=== PATIENT | male | born 1965 | race Caucasian/White ===

== ENCOUNTER 2019-09-02 06:25 | Day surgery (SDC) | payer BC ==
[~2019-09-02 06:25] MED LIST: Buffered Lidocaine 1% SYRIN* 1 ML/SYRINGE INTRADERM ONE; Dexamethasone IV* 4 MG/ML 1 ML (4 MG) IV SLOW PU ONE; Dexamethasone IV* 4 MG/ML 1 ML (4 MG) ONE; Famotidine IV* 10 MG/ML 2 ML (20 mg) IV ONE; Famotidine IV* 10 MG/ML 2 ML (20 mg) ONE; Lactated Ringers 1000 ML Bag* 1,000 ML IV SCH
[2019-09-02] MEDS ORDERED: ceFAZolin 2 GM PREMIX in ORs 2 GM/50 ML BAG ONE (06:30)
[2019-09-02] MEDS ORDERED: Bupivacaine 0.5% SDV PF* 30ML VIAL ONE (07:08)
[2019-09-02] MEDS ORDERED: Lidocaine 1% INJ* 10 MG/ML 30 ML SDV ONE (07:13)
[2019-09-02] MEDS ORDERED: fentaNYL* 50 MCG/ML 2 ML VIAL (100 MCG VIAL) ONE (07:16)
[2019-09-02] MEDS ORDERED: Ondansetron INJ* 2 MG/ML VIAL ONE (07:17)
[2019-09-02] MEDS ORDERED: Propofol* 10 MG/ML 20 ML BTL ONE (07:17)
[2019-09-02] MEDS ORDERED: Ketorolac INJ* 30 MG/ML 1 ML VIAL ONE (07:17)
[2019-09-02] MEDS ORDERED: Midazolam* 1 MG/ML 5 ML VIAL (5 MG) ONE (07:17)
[2019-09-02] MEDS ORDERED: oxyCODONE/Acetamin 5/325 MG* TAB PO PRN (07:50)
[2019-09-02] MEDS ORDERED: Ondansetron INJ* 2 MG/ML VIAL IV PRN (07:50)
[2019-09-02] MEDS ORDERED: Naloxone* 0.4 MG/ML 1 ML VIAL IV PRN (07:50)
[2019-09-02] MEDS ORDERED: DiMENhydriNATE IV* 50 MG/ML VIAL IV PUSH PRN (07:50)
--- NOTE | 2019-09-02 07:58 | OP ---
Operative Report - Blank - Operative Report Date of Operation: 09/02/19 Note: PATIENT: Aidan Sparks DATE OF : 1965 DATE OF SURGERY: 09/02/2019 SURGEON: Javier Yeager MD SURFACE GRINDER TENDER: MESSI Montanez, whos assistance was necessary for positioning, retraction, help with instrumentation, and closure. ANESTHESIOLOGIST: Dr. Cagle PREOPERATIVE DIAGNOSIS: Right foot ganglion cyst POSTOPERATIVE DIAGNOSIS: Right foot ganglion cyst OPERATION: Right foot ganglion cyst excision ANESTHESIA: MAC with local anesthesia provided by surgeon IMPLANTS: none TOURNIQUET TIME: Less than 30 minutes with an ankle Esmarch tourniquet SPECIMENS: ganglion cyst to pathology ESTIMATED BLOOD LOSS: minimal COMPLICATIONS: none STATUS: Stable from the operating room to the recovery room and then home. INDICATIONS FOR PROCEDURE: Jesus has had a painful, recurrent right dorsolateral foot ganglion that has been aspirated a couple of times by a gunite mixer but recurred. Both operative and non operative treatment alternatives were reviewed. Further, the nature and risks of surgery were reviewed in careful detail, in the office as well as the pre-operative holding area. Our discussions regarding the risks of surgery included, but were not limited to, infection, wound problems, nerve injury, neuroma, RSD, persistent symptoms, cyst recurrence, blood clot, recurrence, failure of the surgery, and even the remote chance of catastrophic complication. DESCRIPTION OF PROCEDURE: The patient was seen in the preoperative holding unit and informed written consent was obtained. The appropriate extremity was marked. The patient was then brought to the operating room and carefully positioned on the operating room table. Anesthesia was induced. All bony prominences were padded with great care. A chlorhexidine based pre-scrub was performed followed by a chloraprep prep and drape in standard sterile fashion. A surgical safety pause was then conducted in which we confirmed the appropriate patient, extremity, planned procedure, availability of equipment, indication and administration of prophylactic antibiotics, and DVT prophylaxis in the form of a compression boot on the non-surgical extremity. We began with Esmarch exsanguination of the limb and placement of an ankle Esmarch tourniquet. An incision was made over the cyst and then careful blunt dissection was made to get down to the deep layer overlying the cyst. Blunt dissection was then utilized to define the cyst. The cyst was then amputated at its stalk excised. Cautery was used to ablate the cysts stalk. No bony prominences were palpated at the joint which would be amenable to saucerization. At this point, we irrigated copiously and then closed in layers meticulously utilizing 3-0 Monocryl and 3-0 nylon for the skin. A sterile dressing was then applied. The patient was then awakened from anesthesia and transferred to the recovery room in stable condition. There were no complications. All needle and sponge counts were correct at the end of the case. ATTESTATION: I attest I was present and scrubbed and performed the critical portions of the procedure myself. POSTOPERATIVE PLAN: She will follow-up in 2 weeks for likely suture removal.
[2019-09-02 08:32] VITALS: BP 120/82
== END 2019-09-04 08:32 | disposition home or self-care (01) ==
LOC: OREAST 06:25
PROVIDERS: ATTEND Orthopaedic Surgery
DX: M67.471 Ganglion, right ankle and foot (principal)
CPT/HCPCS: 88304; J0690; J1100; J1885; J2250; J2405; J2704; J3010; J3490